=== PATIENT | female | born 1995 | race Hispanic/Latino ===

== ENCOUNTER 2018-10-05 22:13 | Observation (INO) | payer MEDICAID ==
[~2018-10-05] VITALS: Ht 149.9 cm; Wt 70.8 kg
[2018-10-05 23:03] LABS: APPEARANCE,URINE Clear (CLEAR); BILIRUBIN,URINE Negative (NEGATIVE); COLOR,URINE Yellow (YELLOW); GLUCOSE, URINE (UA) Negative (NEGATIVE); KETONES,URINE Negative (NEGATIVE); LEUKOCYTE ESTERASE ,URINE Moderate (NEGATIVE); NITRATE,URINE Negative (NEGATIVE); OCCULT BLOOD,URINE Negative (NEGATIVE); PROTEIN,URINE Negative (NEGATIVE); UROBILINOGEN,URINE 0.2 mg/dL (0.2-1.0)
[2018-10-05] MEDS ORDERED: LACTATED RINGERS 1000ML 1,000 ML IV PRN (23:09)
[2018-10-05] MEDS ORDERED: OXYTOCIN-LR 20 UNITS/1000 ML 1,000 ML IV SCH (23:15)
[2018-10-05] MEDS ORDERED: AMPICILLIN 2GM+NS 100ML 100 ML IV SCH (23:15)
[2018-10-05 23:24] LABS: BACTERIA,URINE Few /HPF (None Seen); RBC,URINE None Seen /HPF (0-1); SQUAMOUS EPITHELIAL CELL,UR Moderate /HPF (0-2)
[2018-10-05 23:38] LABS: HEMATOCRIT 29.9 % (36-48); MEAN CORPUSCULAR HEMOGLOBIN 24.1 pg (27.0-33.0); MEAN CORPUSCULAR HGB CONC 32.8 g/dL (32.0-36.0); MEAN CORPUSCULAR VOLUME 73.6 fL (80-100); NUCLEATED RED BLOOD CELLS 0.1 % (0.0-0.19); PLATELET COUNT (AUTO) 336 K/uL (130-400); RED BLOOD CELL COUNT(AUTO) 4.06 MIL/uL (4.00-5.50); RED CELL DISTRIBUTION WIDTH 16.9 % (11.0-15.5); WHITE BLOOD COUNT (AUTO) 9.1 K/uL (4.8-10.8)
[2018-10-05] MEDS: LACTATED RINGERS 1000ML 1,000 ML IV PRN (23:47)
[2018-10-06] MEDS: LACTATED RINGERS 1000ML 1,000 ML IV PRN (02:11)
[2018-10-06] MEDS ORDERED: AMPICILLIN 1GM+NS 50ML 50 ML IV SCH (03:30)
[2018-10-06 06:48] LABS: RAPID PLASMA REAGIN NONREACTIVE (NONREACTIVE)
[2018-10-08 06:15] LABS: HEPATITIS Bs ANTIGEN SCREEN P Negative (Negative)
[2018-10-09] MEDS ORDERED: PNV11TAB5 PO (05:45)
== END 2018-10-06 10:33 | disposition home or self-care (01) ==
LOC: EDH 22:13 → OBSVTOIN 22:14 → INTOOBSV 22:14 → LDH 22:14
PROVIDERS: ADMIT Obstetrics & Gynecology; ATTEND Obstetrics & Gynecology
DX: O62.9 Abnormality of forces of labor, unspecified (principal); Z3A.37 37 weeks gestation of pregnancy
CPT/HCPCS: 36415; 81001; 85027; 86592; 86701; 86850; 86900; 86901; 87340; 87390; 96365; 96366; 99284; G0378 ×12; J0290 ×3; J7120 ×2; 96360; 96361

== ENCOUNTER 2020-04-27 03:20 | Inpatient (IN) | payer MEDICAID ==
[~2020-04-27] VITALS: Ht 149.9 cm; Wt 71.2 kg
[~2020-04-27 03:20] MED LIST: PNV11TAB5 PO
[2020-04-27] MEDS ORDERED: PREN-196 PO (03:32)
[2020-04-27] MEDS ORDERED: LACTATED RINGERS 1000ML 1,000 ML IV PRN ×2 (03:43→04:04)
[2020-04-27] MEDS ORDERED: AMPICILLIN 1GM+NS 50ML 50 ML IV SCH (03:45)
[2020-04-27] MEDS ORDERED: AMPICILLIN 2GM+NS 100ML 100 ML IV SCH (03:45)
[2020-04-27] MEDS ORDERED: AMPICILLIN 2GM+NS 100ML 100 ML IV ONE (03:50)
[2020-04-27] MEDS ORDERED: OXYTOCIN-LR 20 UNITS/1000 ML 1,000 ML IV ONE (03:50)
[2020-04-27] MEDS ORDERED: LIDOCAINE HCL 1% 20 ML VIAL ONE (03:51)
[2020-04-27 03:58] LABS: HEMATOCRIT 33.2 % (36-48); MEAN CORPUSCULAR HEMOGLOBIN 24.7 pg (27.0-33.0); MEAN CORPUSCULAR HGB CONC 32.2 g/dL (32.0-36.0); MEAN CORPUSCULAR VOLUME 76.5 fL (79-99); PLATELET COUNT (AUTO) 295 K/uL (130-400); RED BLOOD CELL COUNT(AUTO) 4.34 MIL/uL (4.00-5.50); RED CELL DISTRIBUTION WIDTH 14.2 % (11.0-15.5); WHITE BLOOD COUNT (AUTO) 7.4 K/uL (4.8-10.8)
[2020-04-27] MEDS ORDERED: MEPERIDINE-PF 50 MG/ML SYG IVP ONE (04:15)
[2020-04-27] MEDS ORDERED: PROMETHAZINE HCL 25 MG/ML 1ML AMPULE IM SCH (04:15)
[2020-04-27] MEDS ORDERED: MEPERIDINE-PF 50 MG/ML SYG ONE (04:18)
[2020-04-27] MEDS ORDERED: BENZOCAINE/LANOLIN/ALOE VERA 60 ML AEROSOL TP PRN (05:00)
[2020-04-27] MEDS ORDERED: ACETAMINOPHEN-CODEINE 300/30MG TAB PO PRN (05:00)
[2020-04-27] MEDS ORDERED: ACETAMINOPHEN 325 MG TAB PO PRN (05:00)
[2020-04-27] MEDS ORDERED: LANOLIN 30GM OINTMENT TP PRN (05:00)
[2020-04-27] MEDS ORDERED: WITCH HAZEL 1 PAD TP PRN (05:00)
[2020-04-27 07:39] VITALS: BP 112/70
[2020-04-27] MEDS ORDERED: OXYTOCIN-LR 20 UNITS/1000 ML 1,000 ML IV SCH (08:45)
[2020-04-27] MEDS: DIPH,PERTUSS(ACELL),TET VAC/PF 0.5 ML VIAL IM SCH (08:55)
[2020-04-27] MEDS ORDERED: DOCUSATE SODIUM 100 MG CAP PO SCH (09:00)
[2020-04-27 09:24] LABS: RAPID PLASMA REAGIN NONREACTIVE (NONREACTIVE)
[2020-04-27] MEDS ORDERED: ACETAMINOPHEN ELIXIR 160 MG/5ML UDCUP PO PRN (09:30)
[2020-04-27] MEDS: DOCUSATE NA 100MG/10ML UDCUP PO SCH ×2 (10:10→20:50)
[2020-04-27 11:15] VITALS: BP 111/72
[2020-04-27 16:11] VITALS: BP 109/64
[2020-04-27 20:00] VITALS: BP 101/60
[2020-04-27 23:52] VITALS: BP 118/78
[2020-04-28 03:21] VITALS: BP 95/58
[2020-04-28 07:32] VITALS: BP 110/64
[2020-04-28] MEDS: DIPH,PERTUSS(ACELL),TET VAC/PF 0.5 ML VIAL IM SCH (07:40)
[2020-04-28] MEDS: DOCUSATE NA 100MG/10ML UDCUP PO SCH (09:00)
--- NOTE | 2020-04-28 10:00 | NUR ---
pt is discharged. verbal and written discharge instructions given. informed of the follow up appointment, no prescription given. Informed to call her doctor for any concerns. Pt voiced understanding to all things discussed. Addendum: 04/28/20 at 1054 by LISA PARRISH RN Amended: Links added.
[2020-04-28 10:14] LABS: HEPATITIS Bs ANTIGEN SCREEN P Negative (Negative)
--- NOTE | 2020-04-28 11:20 | NUR ---
pt is dismissed in stable condition. brought to private car via wheelchair. Addendum: 04/28/20 at 1125 by LISA PARRISH RN Amended: Links added.
== END 2020-04-28 11:20 | disposition home or self-care (01) | DRG 560 ==
LOC: EDH 03:20 → LDH 03:21 → OBSVTOIN 03:21 → WSH 06:10
PROVIDERS: ADMIT Obstetrics & Gynecology; ATTEND Obstetrics & Gynecology
PROC: 10E0XZZ Delivery of Products of Conception, External Approach (ICD-10-PCS; principal; 2020-04-27)
PROC: 6A550ZT Pheresis of Cord Blood Stem Cells, Single (ICD-10-PCS; 2020-04-27)
PROC: 3E0234Z Introduction of Serum, Toxoid and Vaccine into Muscle, Percutaneous Approach (ICD-10-PCS; 2020-04-27)
DX: O62.3 Precipitate labor (principal); Z3A.37 37 weeks gestation of pregnancy; Z37.0 Single live birth; Z23 Encounter for immunization
CPT/HCPCS: 36415; 85027; 86592; 86701; 86850; 86900; 86901; 87340; 87390; 90715; G0378; J0290; J2175; J2590

== ENCOUNTER 2023-11-05 20:19 | Emergency (ER) | payer MEDICAID ==
[~2023-11-05] VITALS: Ht 149.9 cm; Wt 77.1 kg
[~2023-11-05 20:19] MED LIST changes: +PREN-196 PO
[2023-11-05 20:29] VITALS: BP 114/70; PULSE 92; RESP 20
[2023-11-05 21:02] LABS: RAPID GROUP A STREP negative (NEGATIVE)
[2023-11-05 21:03] LABS: SARS-CoV-2, RNA, NAAT NEGATIVE SARS CoV-2 (NEGATIVE)
[2023-11-05 21:12] LABS: INFLUENZA TYPE A Negative For Type A (NEGATIVE); INFLUENZA TYPE B Negative For Type B (NEGATIVE)
[2023-11-05] MEDS ORDERED: ACET-66 PO (21:39)
[2023-11-05] MEDS ORDERED: DEXT30SU5 PO (21:39)
== END 2023-11-05 21:46 | disposition home or self-care (01) ==
LOC: EDH 20:19
DX: O99.513 Diseases of the respiratory system complicating pregnancy, third trimester (principal); J06.9 Acute upper respiratory infection, unspecified; R09.82 Postnasal drip; R07.0 Pain in throat; Z20.822 Contact with and (suspected) exposure to COVID-19; Z3A.34 34 weeks gestation of pregnancy; Z79.899 Other long term (current) drug therapy; Z88.8 Allergy status to other drugs, medicaments and biological substances
CPT/HCPCS: 87635; 87804; 87880